=== PATIENT | female | born 1955 | race Caucasian/White ===

== ENCOUNTER 2016-09-05 16:25 | Emergency (ER) | payer MEDICARE, MEDICAID ==
--- NOTE | 2016-09-05 18:42 | EDDOCDS ---
Nurse's Notes [facility] Name: Cleo Celeste Age: 61 yrs Sex: Female : 1955 Arrival Date: 09/05/2016 Time: 16:25 Bed TR8 Private MD: Other - Complete Info On Cds Diagnosis: Cellulitis and abscess of mouth-TOOTH #28 Presentation: 09/05 16:41 Presenting complaint: Patient states: Was sent here by dentist office for consult with jo3 Dr Chan. States that paperwork should have been sent over. Has obvious swelling to right jaw. Seen at dentists office today and given Clindamycin prescription and then dentist called her back and advised her to come to ED. Adult Sepsis Screening: The patient does not have new or worsening altered mentation. Patient's respiratory rate is less than 22. Systolic blood pressure is greater than 100. Patient has a qSOFA score of 0- Negative Sepsis Screen. Suicide/Homicide risk assessment- the patient denies having any suicidal and/or homicidal ideations and does not present with any other emotional, behavioral or mental health complaints. 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 Transition of care: patient was not received from another setting of care. 16:41 Acuity: ELENITA Level 3 jo3 16:41 Method Of Arrival: Walkin/Carried/Asstd jo3 Triage Assessment: 16:48 General: Appears in no apparent distress, Behavior is appropriate for age, cooperative. jo3 Pain: Pain currently is 4 out of 10 on a pain scale. HIV screening NA for this visit Offered previously. Neurological: Level of Consciousness is awake, alert, Oriented to person, place, time. Respiratory: Airway is patent Respiratory effort is even, unlabored. Historical: - Allergies: PENICILLINS; Amoxicillin; Doxycycline; - Home Meds: 1. clindamycin HCl 300 mg Oral cap 1 cap TID 2. Klonopin 1 mg Oral tab 1 tab 3 times per day 3. trazodone 100 mg Oral tab HS 4. Seroquel 50mg in am and afternoon and 300mg at HS Oral tab 5. Effexor XR 75 mg Oral cp24 1 cap once daily 6. Fish Oil 1,000 mg Oral cap twice a day 7. Crestor 40 mg Oral tab 1 tab once daily 8. torsemide 20 mg oral tab 1 tab BID 9. metformin 1,000 mg Oral tab 1 tab 2 times per day 10. gabapentin 300 mg Oral cap 1 cap 3 times per day - PMHx: Diabetes - NIDDM: controlled; Hypercholesterolemia; Anxiety; Depression; Dysthymia; Hypertension; - PSHx: oral surgery; - Social history: Smoking status: Patient uses tobacco products, heavy tobacco smoker. No barriers to communication noted, The patient speaks fluent Mongolian, Speaks appropriately for age. - Family history: Not pertinent. - : The pt / caregiver states he / she is not on anticoagulants. Home medication list is obtained from the patient. - Exposure Risk Screening:: None identified. Screenin:40 Screening information is obtained from the patient. Fall risk: No risks identified. kcs Assistance ADL's: requires no assistance with activities of daily living. Abuse/DV Screen: The patient / caregiver reports he/she is: not in a situation that causes fear, pain or injury. Nutritional screening: No deficits noted. Advance Directives: Currently, there is no health care proxy. There is no living will. home support is adequate. Assessment: 18:15 General: Patient being examined by Dr. Chan.. Pain: Location: right side of face. kcs Neurological: Level of Consciousness is awake, alert. Respiratory: Airway is patent Respiratory effort is even, unlabored, Respiratory pattern is regular, symmetrical. Derm: Skin is intact, is healthy with good turgor, Skin is dry, Skin is normal, right side of face is swollen an slightly red. Talking easily. Smiling. 18:33 General: Appears comfortable, ill, well developed, well nourished, well groomed, kcs Behavior is cooperative, pleasant. Pain: Complains of pain in right side of face. Awake, alert, oriented. Skin warm and dry. Moves all extremities. Respirations unlabored. No apparent distress. The patient / caregiver is instructed regarding the plan of care and ED course. Physical assessment to be completed by PA/EDMD. Vital Signs: 16:29 BP 113 / 68 RA Sitting (auto/reg); Pulse 99; Resp 18; Temp 100.1; Pulse Ox 98% on R/A; jrd Weight 86.64 kg; Height 5 ft. 4 in. (162.56 cm); Pain 4/10; 18:31 BP 132 / 71; Pulse 98; Resp 20; Temp 98.3(O); Pulse Ox 99% on R/A; Pain 5/10; ct3 16:29 Body Mass Index 32.78 (86.64 kg, 162.56 cm) [facility] Vitals: 16:29 Log In Time: September 05, 2016 at 04:10. [facility] ED Course: 16:28 Patient visited by Jimbo Stockton PCA. jrd 16:28 Patient moved to Waiting jrd 16:29 Other - Complete Info On Cds is Private Physician. jrd 16:30 Patient visited by Jimbo Stockton PCA. jrd 16:30 Patient moved to Pre RCE jrd 16:44 Triage Initiated jo3 16:50 Patient visited by Liza Cardenas,MELANIE. jo3 17:33 Patient moved to Triage 2 ct3 17:34 Patient visited by Thu Brantley,MELANIE. ck1 17:58 Joselito Mendenhall PA is PHCP. mo1 17:58 Jacob Pemberton MD is Attending Physician. mo1 18:05 Patient visited by Joselito Mendenhall PA. mo1 18:10 Patient moved to PD2 / 27 mo1 18:15 No IV's were initiated during this patient's visit. No procedures done that require kcs assistance. 18:27 Gilbert Chan is Referral Physician. mo1 18:32 Patient visited by Roxy Rosado PCA. ct3 18:33 Accompanied by Friend. kcs 18:41 Patient moved to TR8 ct3 Order Results: There are currently no results for this order. Outcome: 18:15 Discharge Assessment: Patient awake, alert and oriented x 3. No cognitive and/or kcs functional deficits noted. Patient verbalized understanding of disposition instructions. Patient awake and alert. patient administered narcotics - no. Property sent home with patient. 18:27 Discharge ordered by Provider. mo1 18:33 The following High Risk Discharge criteria are identified: None. Discharged to home kcs ambulatory, with friend. Condition: stable. Discharge instructions given to patient, Instructed on discharge instructions, follow up and referral plans. Demonstrated understanding of instructions, Pt was receptive of discharge instructions/ teaching. No special radiology studies were completed. 18:41 Patient left the ED. kcs Signatures: Esther Avila RN RN kcs Kim-Ashcraft, Connie, RN RN ck1 Liza CardenasRN RN jo3 Alonzo, Roxy, SUPERVISING ARCHITECT SUPERVISING ARCHITECT ct3 Joselito Mendenhall PA PA mo1 Jimbo Stockton, SUPERVISING ARCHITECT SUPERVISING ARCHITECT jrd MTDD
--- NOTE | 2016-09-05 18:42 | EDDOCDS ---
Physician Documentation [facility] Name: Cleo Celeste Age: 61 yrs Sex: Female : 1955 Arrival Date: 09/05/2016 Time: 16:25 Bed TR8 Private MD: Other - Complete Info On Cds Disposition: 09/05/16 18:27 Discharged to Home/Self Care. Impression: Cellulitis and abscess of mouth - TOOTH #28. - Condition is Stable. - Discharge Instructions: Cellulitis, Dental Abscess. - Medication Reconciliation, Local Pharmacy Hours form. - Follow up: Gilbert Chan; When: Tomorrow; Reason: Recheck today's complaints, Continuance of care. - Problem is new. - Symptoms are unchanged. Historical: - Allergies: PENICILLINS; Amoxicillin; Doxycycline; - Home Meds: 1. clindamycin HCl 300 mg Oral cap 1 cap TID 2. Klonopin 1 mg Oral tab 1 tab 3 times per day 3. trazodone 100 mg Oral tab HS 4. Seroquel 50mg in am and afternoon and 300mg at HS Oral tab 5. Effexor XR 75 mg Oral cp24 1 cap once daily 6. Fish Oil 1,000 mg Oral cap twice a day 7. Crestor 40 mg Oral tab 1 tab once daily 8. torsemide 20 mg oral tab 1 tab BID 9. metformin 1,000 mg Oral tab 1 tab 2 times per day 10. gabapentin 300 mg Oral cap 1 cap 3 times per day - PMHx: Diabetes - NIDDM: controlled; Hypercholesterolemia; Anxiety; Depression; Dysthymia; Hypertension; - PSHx: oral surgery; - Social history: Smoking status: Patient uses tobacco products, heavy tobacco smoker. No barriers to communication noted, The patient speaks fluent Palestinian, Speaks appropriately for age. - Family history: Not pertinent. - : The pt / caregiver states he / she is not on anticoagulants. Home medication list is obtained from the patient. - Exposure Risk Screening:: None identified. Vital Signs: 09/05 16:29 BP 113 / 68 RA Sitting (auto/reg); Pulse 99; Resp 18; Temp 100.1; Pulse Ox 98% on R/A; jrd Weight 86.64 kg / 191.01 lbs; Height 5 ft. 4 in. (162.56 cm); Pain 4/10; 18:31 BP 132 / 71; Pulse 98; Resp 20; Temp 98.3(O); Pulse Ox 99% on R/A; Pain 5/10; ct3 16:29 Body Mass Index 32.78 (86.64 kg, 162.56 cm) jrd Signatures: Esther Avila RN RN kcs Helmerci, Jennifer, RN RN jo3 Joselito Mendenhall PA PA mo1 MTDD
--- NOTE | 2016-09-07 19:42 | EDDOCDS ---
Physician Documentation [facility] Name: Cleo Celeste Age: 61 yrs Sex: Female : 1955 Arrival Date: 09/05/2016 Time: 16:25 Bed TR8 Private MD: Other - Complete Info On Cds Disposition: 09/05/16 18:27 Discharged to Home/Self Care. Impression: Cellulitis and abscess of mouth - TOOTH #28. - Condition is Stable. - Discharge Instructions: Cellulitis, Dental Abscess. - Medication Reconciliation, Local Pharmacy Hours form. - Follow up: Gilbert Chan; When: Tomorrow; Reason: Recheck today's complaints, Continuance of care. - Problem is new. - Symptoms are unchanged. Historical: - Allergies: PENICILLINS; Amoxicillin; Doxycycline; - Home Meds: 1. clindamycin HCl 300 mg Oral cap 1 cap TID 2. Klonopin 1 mg Oral tab 1 tab 3 times per day 3. trazodone 100 mg Oral tab HS 4. Seroquel 50mg in am and afternoon and 300mg at HS Oral tab 5. Effexor XR 75 mg Oral cp24 1 cap once daily 6. Fish Oil 1,000 mg Oral cap twice a day 7. Crestor 40 mg Oral tab 1 tab once daily 8. torsemide 20 mg oral tab 1 tab BID 9. metformin 1,000 mg Oral tab 1 tab 2 times per day 10. gabapentin 300 mg Oral cap 1 cap 3 times per day - PMHx: Diabetes - NIDDM: controlled; Hypercholesterolemia; Anxiety; Depression; Dysthymia; Hypertension; - PSHx: oral surgery; - Social history: Smoking status: Patient uses tobacco products, heavy tobacco smoker. No barriers to communication noted, The patient speaks fluent Tajik, Speaks appropriately for age. - Family history: Not pertinent. - : The pt / caregiver states he / she is not on anticoagulants. Home medication list is obtained from the patient. - Exposure Risk Screening:: None identified. Vital Signs: 09/05 16:29 BP 113 / 68 RA Sitting (auto/reg); Pulse 99; Resp 18; Temp 100.1; Pulse Ox 98% on R/A; jrd Weight 86.64 kg / 191.01 lbs; Height 5 ft. 4 in. (162.56 cm); Pain 4/10; 18:31 BP 132 / 71; Pulse 98; Resp 20; Temp 98.3(O); Pulse Ox 99% on R/A; Pain 5/10; ct3 16:29 Body Mass Index 32.78 (86.64 kg, 162.56 cm) jrd MDM: 18:57 [facility] Payment Agreement was scanned into [employer] and attached to record. zo 18:57 Financial registration complete. zo 09/06 10:29 T-Sheet-- Draft Copy was scanned into [employer] and attached to record. gb Signatures: Esther Avila, RN RN kcs Jazmin Mcgill, Reg Reg gb Liza Cardenas RN RN jo3 Shawn Cooley Michael, PA PA mo1 The chart was reviewed and I authenticate all verbal orders and agree with the evaluation and treatment provided.Attachments: 09/05 18:57 [facility] Payment Agreement zo 09/06 10:29 T-Sheet-- Draft Copy gb Chart Complete MTDD
--- NOTE | 2016-09-07 19:42 | EDDOCDS ---
Nurse's Notes [facility] Name: Cleo Celeste Age: 61 yrs Sex: Female : 1955 Arrival Date: 09/05/2016 Time: 16:25 Bed TR8 Private MD: Other - Complete Info On Cds Diagnosis: Cellulitis and abscess of mouth-TOOTH #28 Presentation: 09/05 16:41 Presenting complaint: Patient states: Was sent here by dentist office for consult with jo3 Dr Chan. States that paperwork should have been sent over. Has obvious swelling to right jaw. Seen at dentists office today and given Clindamycin prescription and then dentist called her back and advised her to come to ED. Adult Sepsis Screening: The patient does not have new or worsening altered mentation. Patient's respiratory rate is less than 22. Systolic blood pressure is greater than 100. Patient has a qSOFA score of 0- Negative Sepsis Screen. Suicide/Homicide risk assessment- the patient denies having any suicidal and/or homicidal ideations and does not present with any other emotional, behavioral or mental health complaints. Status: Patient is not a family service caseworker or dependent. Transition of care: patient was not received from another setting of care. 16:41 Acuity: ELENITA Level 3 jo3 16:41 Method Of Arrival: Walkin/Carried/Asstd jo3 Triage Assessment: 16:48 General: Appears in no apparent distress, Behavior is appropriate for age, cooperative. jo3 Pain: Pain currently is 4 out of 10 on a pain scale. HIV screening NA for this visit Offered previously. Neurological: Level of Consciousness is awake, alert, Oriented to person, place, time. Respiratory: Airway is patent Respiratory effort is even, unlabored. Historical: - Allergies: PENICILLINS; Amoxicillin; Doxycycline; - Home Meds: 1. clindamycin HCl 300 mg Oral cap 1 cap TID 2. Klonopin 1 mg Oral tab 1 tab 3 times per day 3. trazodone 100 mg Oral tab HS 4. Seroquel 50mg in am and afternoon and 300mg at HS Oral tab 5. Effexor XR 75 mg Oral cp24 1 cap once daily 6. Fish Oil 1,000 mg Oral cap twice a day 7. Crestor 40 mg Oral tab 1 tab once daily 8. torsemide 20 mg oral tab 1 tab BID 9. metformin 1,000 mg Oral tab 1 tab 2 times per day 10. gabapentin 300 mg Oral cap 1 cap 3 times per day - PMHx: Diabetes - NIDDM: controlled; Hypercholesterolemia; Anxiety; Depression; Dysthymia; Hypertension; - PSHx: oral surgery; - Social history: Smoking status: Patient uses tobacco products, heavy tobacco smoker. No barriers to communication noted, The patient speaks fluent Lithuanian, Speaks appropriately for age. - Family history: Not pertinent. - : The pt / caregiver states he / she is not on anticoagulants. Home medication list is obtained from the patient. - Exposure Risk Screening:: None identified. Screenin:40 Screening information is obtained from the patient. Fall risk: No risks identified. kcs Assistance ADL's: requires no assistance with activities of daily living. Abuse/DV Screen: The patient / caregiver reports he/she is: not in a situation that causes fear, pain or injury. Nutritional screening: No deficits noted. Advance Directives: Currently, there is no health care proxy. There is no living will. home support is adequate. Assessment: 18:15 General: Patient being examined by Dr. Chan.. Pain: Location: right side of face. kcs Neurological: Level of Consciousness is awake, alert. Respiratory: Airway is patent Respiratory effort is even, unlabored, Respiratory pattern is regular, symmetrical. Derm: Skin is intact, is healthy with good turgor, Skin is dry, Skin is normal, right side of face is swollen an slightly red. Talking easily. Smiling. 18:33 General: Appears comfortable, ill, well developed, well nourished, well groomed, kcs Behavior is cooperative, pleasant. Pain: Complains of pain in right side of face. Awake, alert, oriented. Skin warm and dry. Moves all extremities. Respirations unlabored. No apparent distress. The patient / caregiver is instructed regarding the plan of care and ED course. Physical assessment to be completed by PA/EDMD. Vital Signs: 16:29 BP 113 / 68 RA Sitting (auto/reg); Pulse 99; Resp 18; Temp 100.1; Pulse Ox 98% on R/A; jrd Weight 86.64 kg; Height 5 ft. 4 in. (162.56 cm); Pain 4/10; 18:31 BP 132 / 71; Pulse 98; Resp 20; Temp 98.3(O); Pulse Ox 99% on R/A; Pain 5/10; ct3 16:29 Body Mass Index 32.78 (86.64 kg, 162.56 cm) [facility] Vitals: 16:29 Log In Time: September 05, 2016 at 04:[address] [facility] ED Course: 16:28 Patient visited by Jimbo Stockton PCA. jrd 16:28 Patient moved to Waiting jrd 16:29 Other - Complete Info On Cds is Private Physician. jrd 16:30 Patient visited by Jimbo Stockton PCA. jrd 16:30 Patient moved to Pre RCE jrd 16:44 Triage Initiated jo3 16:50 Patient visited by Liza Cardenas,MELANIE. jo3 17:33 Patient moved to Triage 2 ct3 17:34 Patient visited by Thu Brantley,MELANIE. ck1 17:58 Joselito Mendenhall PA is PHCP. mo1 17:58 Jacob Pemberton MD is Attending Physician. mo1 18:05 Patient visited by Joselito Mendenhall PA. mo1 18:10 Patient moved to PD2 / 27 mo1 18:15 No IV's were initiated during this patient's visit. No procedures done that require kcs assistance. 18:27 Gilbert Chan is Referral Physician. mo1 18:32 Patient visited by Roxy Rosado PCA. ct3 18:33 Accompanied by Friend. kcs 18:41 Patient moved to TR8 ct3 18:56 Patient name changed from Cleo\S\A\S\Celeste\S\ to Cleo\S\ \S\Celeste. EDMS 18:57 [facility] [place] Agreement was scanned into [employer] and attached to record. zo 09/06 10:29 T-Sheet-- Draft Copy was scanned into [employer] and attached to record. gb Order Results: There are currently no results for this order. Outcome: 09/05 18:15 Discharge Assessment: Patient awake, alert and oriented x 3. No cognitive and/or kcs functional deficits noted. Patient verbalized understanding of disposition instructions. Patient awake and alert. patient administered narcotics - no. Property sent home with patient. 18:27 Discharge ordered by Provider. mo1 18:33 The following High Risk Discharge criteria are identified: None. Discharged to home kcs ambulatory, with friend. Condition: stable. Discharge instructions given to patient, Instructed on discharge instructions, follow up and referral plans. Demonstrated understanding of instructions, Pt was receptive of discharge instructions/ teaching. No special radiology studies were completed. 18:41 Patient left the ED. kcs Signatures: Dispatcher [employer] EDMS Esther Avila RN RN kcs Jazmin Mcgill, Reg Reg gb Thu BrantleyRN RN ck1 Liza Cardenas RN RN jo3 Shawn Cooley Consuelo, ADVERTISING ANALYST ADVERTISING ANALYST ct3 Joselito Mendenhall PA PA mo1 Jimbo Stockton, ADVERTISING ANALYST ADVERTISING ANALYST jrd Chart Complete MTDD
--- NOTE | 2016-09-07 19:42 | EDDOCDS ---
Physician Documentation [facility] Name: Cleo Celeste Age: 61 yrs Sex: Female : 1955 Arrival Date: 09/05/2016 Time: 16:25 Bed TR8 Private MD: Other - Complete Info On Cds Disposition: 09/05/16 18:27 Discharged to Home/Self Care. Impression: Cellulitis and abscess of mouth - TOOTH #28. - Condition is Stable. - Discharge Instructions: Cellulitis, Dental Abscess. - Medication Reconciliation, Local Pharmacy Hours form. - Follow up: Gilbert Chan; When: Tomorrow; Reason: Recheck today's complaints, Continuance of care. - Problem is new. - Symptoms are unchanged. Historical: - Allergies: PENICILLINS; Amoxicillin; Doxycycline; - Home Meds: 1. clindamycin HCl 300 mg Oral cap 1 cap TID 2. Klonopin 1 mg Oral tab 1 tab 3 times per day 3. trazodone 100 mg Oral tab HS 4. Seroquel 50mg in am and afternoon and 300mg at HS Oral tab 5. Effexor XR 75 mg Oral cp24 1 cap once daily 6. Fish Oil 1,000 mg Oral cap twice a day 7. Crestor 40 mg Oral tab 1 tab once daily 8. torsemide 20 mg oral tab 1 tab BID 9. metformin 1,000 mg Oral tab 1 tab 2 times per day 10. gabapentin 300 mg Oral cap 1 cap 3 times per day - PMHx: Diabetes - NIDDM: controlled; Hypercholesterolemia; Anxiety; Depression; Dysthymia; Hypertension; - PSHx: oral surgery; - Social history: Smoking status: Patient uses tobacco products, heavy tobacco smoker. No barriers to communication noted, The patient speaks fluent Icelandic, Speaks appropriately for age. - Family history: Not pertinent. - : The pt / caregiver states he / she is not on anticoagulants. Home medication list is obtained from the patient. - Exposure Risk Screening:: None identified. Vital Signs: 09/05 16:29 BP 113 / 68 RA Sitting (auto/reg); Pulse 99; Resp 18; Temp 100.1; Pulse Ox 98% on R/A; jrd Weight 86.64 kg / 191.01 lbs; Height 5 ft. 4 in. (162.56 cm); Pain 4/10; 18:31 BP 132 / 71; Pulse 98; Resp 20; Temp 98.3(O); Pulse Ox 99% on R/A; Pain 5/10; ct3 16:29 Body Mass Index 32.78 (86.64 kg, 162.56 cm) jrd MDM: 18:57 [facility] Payment Agreement was scanned into [employer] and attached to record. zo 18:57 Financial registration complete. zo 09/06 10:29 T-Sheet-- Draft Copy was scanned into [employer] and attached to record. gb Signatures: Esther Avila, RN RN kcs Jazmin Mcgill, Reg Reg gb Liza Cardenas RN RN jo3 Shawn Cooley Michael, PA PA mo1 The chart was reviewed and I authenticate all verbal orders and agree with the evaluation and treatment provided.Attachments: 09/05 18:57 [facility] Payment Agreement zo 09/06 10:29 T-Sheet-- Draft Copy gb Chart Complete MTDD
== END 2016-09-05 18:41 | disposition home or self-care (01) ==
LOC: M ED 16:25
DX: K05.219 Aggressive periodontitis, localized, unspecified severity (principal); K02.9 Dental caries, unspecified; R68.84 Jaw pain; E11.9 Type 2 diabetes mellitus without complications; E78.00 Pure hypercholesterolemia, unspecified; F41.9 Anxiety disorder, unspecified; F32.9 Major depressive disorder, single episode, unspecified; I10 Essential (primary) hypertension; F34.1 Dysthymic disorder; Z72.0 Tobacco use; Z79.899 Other long term (current) drug therapy; Z88.0 Allergy status to penicillin; Z88.1 Allergy status to other antibiotic agents

== ENCOUNTER → 2019-03-01 | Outpatient (REF) | payer MEDICARE, MEDICAID ==
[~2019-03-01] MED LIST: CLON1TAB8 PO; DEXI60CA2 PO; GABA-843 PO; METF10004 PO; POTA10PO PO; QUET1TAB10 PO; QUET5TAB PO; RAMI1CAP21 PO; ROSU20TA5 PO; TORS20TA2 PO; TRAZ-163 PO; VENL75CA47 PO; VENTAER INH; VITA200015 PO
[2019-03-03 12:00] LABS: HEPATITIS B SURFACE ANTIBODY NEGATIVE (POSITIVE); HEPATITIS B SURFACE ANTIGEN NEGATIVE (NEGATIVE); HIV 1&2 SCREEN CENTAUR NEGATIVE (NEGATIVE)
[2019-03-05 00:06] LABS: HEPATITIS B CORE ANTIBODY IGG Negative (Negative)
== END ==
LOC: M SFHCPLAZ 15:42
PROVIDERS: ATTEND Dermatology
DX: Z79.899 Other long term (current) drug therapy (principal)

== ENCOUNTER → 2020-06-28 | Outpatient (REF) | payer MEDICARE, MEDICAID ==
[~2020-06-28] MED LIST changes: -TRAZ-163 PO; +TRAZ-257 PO
== END ==
LOC: M LAB REF 17:40
PROVIDERS: ATTEND Dermatology
DX: L81.4 Other melanin hyperpigmentation (principal)
CPT/HCPCS: 11102; 88305; G0463

== ENCOUNTER → 2020-07-05 | Outpatient (CLI) | payer MEDICARE, MEDICAID | LOC: M LAB 15:03 | PROVIDERS: ATTEND Dermatology | DX: Z79.899 Other long term (current) drug therapy (principal) ==

== ENCOUNTER → 2020-07-05 | Outpatient (CLI) | payer MEDICARE, MEDICAID ==
[2020-07-05 16:49] LABS: FREE T4 0.78 NG/DL (0.76-1.46); THYROID STIMULATING HORMONE 1.55 uIU/ML (0.358-3.740)
== END ==
LOC: M LAB 14:57
PROVIDERS: ATTEND Internal Medicine Gastroenterology
DX: R19.4 Change in bowel habit (principal); Z79.899 Other long term (current) drug therapy

== ENCOUNTER → 2020-10-10 | Outpatient (CLI) | payer MEDICARE, MEDICAID ==
[~2020-10-10] MED LIST changes: +GABA-282 PO; -GABA-843 PO; -QUET1TAB10 PO; +QUET300T2 PO; +QUET50TA3 PO; -QUET5TAB PO
--- NOTE | 2020-10-10 15:04 | REP ---
INDICATION: DECREASED GFR. COMPARISON: None. TECHNIQUE: Real-time sonographic evaluation of the kidneys is performed. FINDINGS: Renal cortical echogenicity pattern is normal bilaterally and contours are smooth. There is no evidence of hydronephrosis, cyst, mass, or calculus in either kidney. The right kidney measures 9.7 x 4.7 x 4.7 cm. Left renal dimensions are 9.6 x 4.5 x 4.8 cm. The urinary bladder is unremarkable. Ureteral jets could not be seen in the urinary bladder with Doppler color evaluation. IMPRESSION: Negative renal ultrasound. <Electronically signed by Raj Machado > 10/10/20 1500
== END ==
LOC: M RAD 14:27
PROVIDERS: ATTEND Physician Assistant
DX: R94.4 Abnormal results of kidney function studies (principal)

== ENCOUNTER → 2020-10-19 | Outpatient (CLI) | payer MEDICARE, MEDICAID ==
[~2020-10-19] MED LIST changes: +PROP10TA56 PO; +VENL150C43 PO
== END ==
LOC: M LABSMTC 09:40
PROVIDERS: ATTEND Anesthesiology
DX: Z11.52 Encounter for screening for COVID-19 (principal)

== ENCOUNTER 2020-10-24 06:58 | Day surgery (SDC) | payer MEDICARE, MEDICAID ==
[~2020-10-24] VITALS: Ht 157.5 cm; Wt 86.2 kg
[~2020-10-24 06:58] MED LIST changes: +NS 1,000 ML IV ONE
[2020-10-24] MEDS ORDERED: propofoL 200 MG/20 ML VIAL As Ordered ONE (07:18)
[2020-10-24] MEDS ORDERED: LIDOCAINE 2% 100MG/5ML SDV (FOR ANES.) As Ordered ONE (07:18)
--- NOTE | 2020-10-24 08:29 | ROOR ---
Patient Name: Cleo Celeste Procedure Date: 10/24/2020 7:53 AM Date of : 1955 Age: 65 Room: [facility] Gender: Female Note Status: Finalized Procedure: Colonoscopy Indications: Chronic diarrhea Providers: Duy DINERO MD Referring MD: Hanna Hickman NP Requesting Provider: Medicines: Monitored Anesthesia Care Complications: No immediate complications. Procedure: Pre-Anesthesia Assessment: - The heart rate, respiratory rate, oxygen saturations, blood pressure, adequacy of pulmonary ventilation, and response to care were monitored throughout the procedure. The Colonoscope was introduced through the anus and advanced to the terminal ileum, with identification of the appendiceal orifice and IC valve. The colonoscopy was performed without difficulty. The patient tolerated the procedure well. The quality of the bowel preparation was good. Findings: The perianal and digital rectal examinations were normal. Two sessile polyps were found in the sigmoid colon. The polyps were 4 to 5 mm in size. These polyps were removed with a cold snare. Resection and retrieval were complete. Small Internal Hemorrhoids. The colon exam was otherwise without abnormality. The terminal ileum appeared normal. Biopsies for histology were taken with a cold forceps from the entire colon for evaluation of microscopic colitis. Impression: - Two 4 to 5 mm polyps in the sigmoid colon, removed with a cold snare. Resected and retrieved. - Small Internal Hemorrhoids. - The examination was otherwise normal. - The examined portion of the ileum was normal. - Biopsies were taken with a cold forceps from the entire colon for evaluation of microscopic colitis. Recommendation: - Lactose free diet. - Await pathology results. - Telephone endoscopist for pathology results in 2 weeks. - I am awaiting the results of your stool testing. My office will mail you the necessary stool testing lab slips again. Please do these tests as soon as convenient and submit to the [facility] lab. I will give you the results when you call for your pathology report in 2 weeks. - Return to referring physician as previously scheduled. Procedure Code(s): --- Professional --- 68672, Colonoscopy, flexible; with removal of tumor(s), polyp(s), or other lesion(s) by snare technique 39978, 59, Colonoscopy, flexible; with biopsy, single or multiple Diagnosis Code(s): --- Professional --- K52.9, Noninfective gastroenteritis and colitis, unspecified K63.5, Polyp of colon CPT copyright 2019 [employer]. All rights reserved. The codes documented in this report are preliminary and upon cardiology teacher review may be revised to meet current compliance requirements. Duy Dinero MD Duy DINERO MD 10/24/2020 8:29:32 AM Electronically signed by Duy DINERO MD Number of Addenda: 0 Note Initiated On: 10/24/2020 7:53 AM Estimated Blood Loss: Estimated blood loss: none.
[2020-10-24 08:45] VITALS: BP 122/62
== END 2020-10-24 08:53 | disposition home or self-care (01) ==
LOC: M OPP 06:58
PROVIDERS: ATTEND Internal Medicine Gastroenterology
DX: K63.5 Polyp of colon (principal); K52.9 Noninfective gastroenteritis and colitis, unspecified; K64.8 Other hemorrhoids; E11.9 Type 2 diabetes mellitus without complications; F17.210 Nicotine dependence, cigarettes, uncomplicated; M79.7 Fibromyalgia; Z79.84 Long term (current) use of oral hypoglycemic drugs; Z79.899 Other long term (current) drug therapy; Z88.0 Allergy status to penicillin; Z88.1 Allergy status to other antibiotic agents

== ENCOUNTER → 2021-01-11 | Outpatient (REF) | payer MEDICARE, MEDICAID ==
[~2021-01-11] MED LIST changes: -NS 1,000 ML IV ONE
== END ==
LOC: M LAB REF 16:01
PROVIDERS: ATTEND Internal Medicine Gastroenterology
DX: R19.4 Change in bowel habit (principal)

== ENCOUNTER → 2021-06-13 | Outpatient (CLI) | payer MEDICARE, MEDICAID ==
[~2021-06-13] MED LIST changes: -QUET50TA3 PO; +QUET50TA4 PO
[2021-06-13 13:34] LABS: HEMOGLOBIN A1c 6.6 %
[2021-06-13 13:38] LABS: FOLATE 6.1 NG/ML
== END ==
LOC: M LAB 12:45
PROVIDERS: ATTEND Physician Assistant
DX: E53.8 Deficiency of other specified B group vitamins (principal); E11.9 Type 2 diabetes mellitus without complications

== ENCOUNTER → 2021-07-09 | Outpatient (CLI) | payer MEDICARE, MEDICAID | LOC: M LAB 15:56 | PROVIDERS: ATTEND Physician Assistant | DX: L40.0 Psoriasis vulgaris (principal) ==

== ENCOUNTER 2022-03-18 21:15 | Emergency (ER) | payer MEDICARE, MEDICAID ==
[~2022-03-18] VITALS: Ht 157.5 cm; Wt 84.8 kg
[2022-03-19] MEDS ORDERED: FLUORESCEIN OPHTH 1 MG STRIP OS ONE (00:35)
[2022-03-19] MEDS ORDERED: TETRACAINE 0.5% OPHTH SOLN 4ML OS ONE (00:35)
[2022-03-19 01:46] VITALS: BP 182/80
== END 2022-03-19 01:48 | disposition home or self-care (01) ==
LOC: M ED 21:15
DX: Z53.29 Procedure and treatment not carried out because of patient's decision for other reasons (principal)

== ENCOUNTER 2022-04-16 17:51 | Emergency (ER) | payer MEDICAID, MEDICARE ==
[~2022-04-16] VITALS: Ht 157.5 cm; Wt 84.5 kg
[2022-04-16 17:52] VITALS: BP 180/84
[2022-04-16] MEDS ORDERED: CIPROFLOXACIN 0.3% OPHTH SOLN 2.5ML OD ONE (19:45)
[2022-04-16] MEDS ORDERED: CIPR0.3S6 OD (19:47)
== END 2022-04-16 20:10 | disposition home or self-care (01) ==
LOC: M ED 17:51
DX: B30.9 Viral conjunctivitis, unspecified (principal); E11.9 Type 2 diabetes mellitus without complications; I10 Essential (primary) hypertension; J44.9 Chronic obstructive pulmonary disease, unspecified; E78.5 Hyperlipidemia, unspecified; F32.A Depression, unspecified; F41.9 Anxiety disorder, unspecified; Z79.899 Other long term (current) drug therapy; Z79.84 Long term (current) use of oral hypoglycemic drugs; Z88.0 Allergy status to penicillin; Z88.1 Allergy status to other antibiotic agents; F17.200 Nicotine dependence, unspecified, uncomplicated

== ENCOUNTER 2022-05-02 16:51 | Emergency (ER) | payer MEDICARE ==
[~2022-05-02] VITALS: Ht 157.5 cm; Wt 82.7 kg
[~2022-05-02 16:51] MED LIST changes: +CIPR0.3S6 OD
[2022-05-02 18:29] LABS: VENOUS BASE EXCESS 6.1 (-2.0-2.0); VENOUS HCO3 32.6 MEQ/L (23.0-27.0); VENOUS PARTIAL PRESSURE CO2 55.4 mmHg (38.0-50.0); VENOUS PARTIAL PRESSURE O2 45.1 mmHg (30.0-50.0); VENOUS PH 7.387 UNITS (7.330-7.430); VENOUS STANDARD HCO3 29.6 MEQ/L; VENOUS TOTAL CO2 34.3 MEQ/L (24.0-28.0)
[2022-05-02] MEDS ORDERED: methylPREDNISolone 125MG 2ML VIAL IV ONE (19:05)
[2022-05-02] MEDS ORDERED: LIDOCAINE VISCOUS 2% SOLN 15ML UDC SS ONE (19:05)
[2022-05-02] MEDS ORDERED: BENZONATATE 100MG CAPSULE PO ONE (19:05)
[2022-05-02 19:16] LABS: CK-MB VALUE MASS 1.1 NG/ML (<3.6); MB/CK RELATIVE INDEX 2.2 (< OR =4)
[2022-05-02 19:21] LABS: ALBUMIN 3.3 GM/DL (3.2-5.2); BILIRUBIN,DIRECT 0.1 MG/DL (0.0-0.2); BILIRUBIN,TOTAL 0.4 MG/DL (0.2-1.0); CALCIUM LEVEL 9.2 MG/DL (8.8-10.2); CREATININE FOR GFR 1.75 MG/DL (0.55-1.30); GLOMERULAR FILTRATION RATE 31.2 (>45); POTASSIUM SERUM 3.4 MEQ/L (3.5-5.1); THYROID STIMULATING HORMONE 0.92 uIU/ML (0.358-3.740); THYROXINE (T4) 5.1 UG/DL (4.5-12.0)
[2022-05-02 19:38] LABS: BASO % 0.6 % (0.0-1.0); EOS # 0.3 10^3/uL (0.0-0.5); EOS % 3.8 % (0.0-3.0); HEMATOCRIT 35.7 % (36.0-47.0); HEMOGLOBIN 11.9 g/dl (12.0-15.5); LYMPH # 2.6 10^3/uL (1.5-5.0); LYMPH % 36.2 % (24.0-44.0); MEAN CORPUSCULAR HEMOGLOBIN 31.4 pg (27.0-33.0); MEAN CORPUSCULAR HGB CONC 33.3 g/dl (32.0-36.5); MEAN CORPUSCULAR VOLUME 94.2 fl (80.0-96.0); MONO # 0.5 10^3/uL (0.0-0.8); MONO % 6.7 % (2.0-8.0); NEUTROPHILS # 3.7 10^3/uL (1.5-8.5); NEUTROPHILS % 51.9 % (36.0-66.0); PLATELET COUNT, AUTOMATED 352 10^3/uL (150-450); RED BLOOD COUNT 3.79 10^6/uL (4.00-5.40); WHITE BLOOD COUNT 7.2 10^3/uL (4.0-10.0)
[2022-05-02] MEDS ORDERED: NS 1,000 ML IV ONE (19:50)
[2022-05-02] MEDS ORDERED: guaiFENesin ER 600 MG TAB PO SCH (21:00)
[2022-05-02] MEDS ORDERED: BENZ150C2 PO (21:03)
[2022-05-02] MEDS ORDERED: EQ S0.65 NARES (21:03)
[2022-05-02] MEDS ORDERED: MUCI1TAB16 PO (21:03)
[2022-05-02] MEDS ORDERED: PRED20TA PO (21:04)
[2022-05-02 21:23] VITALS: BP 141/76
== END 2022-05-02 21:26 | disposition home or self-care (01) ==
LOC: M ED 16:51
DX: U07.1 COVID-19 (principal); F17.200 Nicotine dependence, unspecified, uncomplicated; I11.0 Hypertensive heart disease with heart failure; J44.9 Chronic obstructive pulmonary disease, unspecified; Z88.0 Allergy status to penicillin; Z88.1 Allergy status to other antibiotic agents
CPT/HCPCS: 71045; 80047; 80048; 80076; 82550; 82553; 82803; 83605; 83880; 84436; 84443; 84484; 85025; 87040; 93005; 96361; 96374; 99284; J2930

== ENCOUNTER → 2022-06-03 | Outpatient (CLI) | payer MEDICARE, MEDICAID ==
[~2022-06-03] MED LIST changes: +BENZ150C2 PO; +EQ S0.65 NARES; +MUCI1TAB16 PO; +PRED20TA PO
== END ==
LOC: M RAD 15:01
PROVIDERS: ATTEND Physician Assistant
DX: Z12.2 Encounter for screening for malignant neoplasm of respiratory organs (principal); F17.210 Nicotine dependence, cigarettes, uncomplicated; R91.8 Other nonspecific abnormal finding of lung field

== ENCOUNTER → 2022-06-04 | Outpatient (CLI) | payer MEDICARE, MEDICAID ==
[2022-06-04 13:04] LABS: HEMATOCRIT 35.3 % (36.0-47.0); HEMOGLOBIN 11.8 g/dl (12.0-15.5); MEAN CORPUSCULAR HEMOGLOBIN 32.2 pg (27.0-33.0); MEAN CORPUSCULAR HGB CONC 33.4 g/dl (32.0-36.5); MEAN CORPUSCULAR VOLUME 96.2 fl (80.0-96.0); PLATELET COUNT, AUTOMATED 322 10^3/uL (150-450); RED BLOOD COUNT 3.67 10^6/uL (4.00-5.40); WHITE BLOOD COUNT 6.4 10^3/uL (4.0-10.0)
[2022-06-04 14:07] LABS: ALBUMIN 3.4 GM/DL (3.2-5.2); BILIRUBIN,TOTAL 0.2 MG/DL (0.2-1.0); CALCIUM LEVEL 8.9 MG/DL (8.8-10.2); CREATININE FOR GFR 1.58 MG/DL (0.55-1.30); GLOMERULAR FILTRATION RATE 35.1 (>45); POTASSIUM SERUM 5.1 MEQ/L (3.5-5.1); THYROID STIMULATING HORMONE 2.66 uIU/ML (0.358-3.740); TOTAL PROTEIN 6.6 GM/DL (6.4-8.2)
== END ==
LOC: M LAB 11:54
PROVIDERS: ATTEND Physician Assistant
DX: N18.9 Chronic kidney disease, unspecified (principal); R60.0 Localized edema

== ENCOUNTER 2022-07-14 16:24 | Emergency (ER) | payer MEDICARE, MEDICAID ==
[~2022-07-14] VITALS: Ht 157.5 cm; Wt 84.9 kg
[2022-07-14 16:24] VITALS: BP 195/83
[2022-07-14 17:39] LABS: RSV AMPLIFICATION NEGATIVE (NEGATIVE)
== END 2022-07-14 20:42 | disposition left against medical advice (07) ==
LOC: M ED 16:24
DX: Z53.21 Procedure and treatment not carried out due to patient leaving prior to being seen by health care provider (principal)

== ENCOUNTER → 2022-07-15 | Outpatient (CLI) | payer MEDICARE, MEDICAID | LOC: M PLARAD 14:20 | PROVIDERS: ATTEND Physician Assistant | DX: J44.9 Chronic obstructive pulmonary disease, unspecified (principal); R91.8 Other nonspecific abnormal finding of lung field; F17.210 Nicotine dependence, cigarettes, uncomplicated ==

== ENCOUNTER → 2022-10-02 | Outpatient (CLI) | payer MEDICARE, MEDICAID | LOC: M LAB 16:42 | PROVIDERS: ATTEND Physician Assistant | DX: L40.9 Psoriasis, unspecified (principal) ==

== ENCOUNTER → 2022-10-18 | Outpatient (REF) | payer MEDICARE, MEDICAID ==
[2022-10-18 17:48] LABS: CREATININE, URINE 21.1 MG/DL
[2022-10-18 17:51] LABS: MALB URINE SIEMENS < 3.0 MG/L; MAU/CREAT RATIO 14.2 MCG/MG (0.0-30.0)
== END ==
LOC: M LAB REF 16:15
PROVIDERS: ATTEND Physician Assistant
DX: E11.9 Type 2 diabetes mellitus without complications (principal)

== ENCOUNTER → 2022-10-29 | Outpatient (CLI) | payer MEDICARE, MEDICAID ==
[2022-10-29 14:46] LABS: HEMATOCRIT 38.4 % (36.0-47.0); HEMOGLOBIN 12.8 g/dl (12.0-15.5); MEAN CORPUSCULAR HEMOGLOBIN 31.9 pg (27.0-33.0); MEAN CORPUSCULAR HGB CONC 33.3 g/dl (32.0-36.5); MEAN CORPUSCULAR VOLUME 95.8 fl (80.0-96.0); PLATELET COUNT, AUTOMATED 268 10^3/uL (150-450); RED BLOOD COUNT 4.01 10^6/uL (4.00-5.40); WHITE BLOOD COUNT 6.1 10^3/uL (4.0-10.0)
[2022-10-29 15:16] LABS: ALBUMIN 3.3 G/DL (3.2-5.2); BILIRUBIN,TOTAL 0.3 MG/DL (0.3-1.2); CALCIUM LEVEL 8.6 MG/DL (8.3-10.6); CHOLESTEROL RISK RATIO 8.65 (<5); CREATININE FOR GFR 1.48 MG/DL (0.55-1.30); GLOMERULAR FILTRATION RATE 37.7 (>45); HDL CHOLESTEROL 33.4 MG/DL (>40); LDL CHOLESTEROL 191.4 MG/DL (<100); NON-HDL-C 255.6 MG/DL; TOTAL PROTEIN 6.3 G/DL (5.7-8.2)
== END ==
LOC: M LAB 14:17
PROVIDERS: ATTEND Physician Assistant
DX: N18.9 Chronic kidney disease, unspecified (principal); E11.9 Type 2 diabetes mellitus without complications

== ENCOUNTER → 2023-01-08 | Outpatient (CLI) | payer MEDICARE, MEDICAID ==
[~2023-01-08] MED LIST changes: +CIPR0.3S37 OD; -CIPR0.3S6 OD
== END ==
LOC: M LAB 12:06
PROVIDERS: ATTEND Physician Assistant
DX: Z79.899 Other long term (current) drug therapy (principal)

== ENCOUNTER → 2023-01-08 | Outpatient (CLI) | payer MEDICARE, MEDICAID ==
[2023-01-08 12:47] LABS: HEMATOCRIT 37.3 % (36.0-47.0); HEMOGLOBIN 12.3 g/dl (12.0-15.5); MEAN CORPUSCULAR HEMOGLOBIN 32.5 pg (27.0-33.0); MEAN CORPUSCULAR VOLUME 98.7 fl (80.0-96.0); PLATELET COUNT, AUTOMATED 307 10^3/uL (150-450); RED BLOOD COUNT 3.78 10^6/uL (4.00-5.40); WHITE BLOOD COUNT 8.5 10^3/uL (4.0-10.0)
[2023-01-08 13:34] LABS: ALBUMIN 3.3 G/DL (3.2-5.2); ALKALINE PHOSPHATASE 109 U/L (46-116); ALT/SGPT 19 U/L (7.0-40); AST/SGOT < 8 U/L (<34); BILIRUBIN,TOTAL 0.3 MG/DL (0.3-1.2); BLOOD UREA NITROGEN 15 MG/DL (9-23); CALCIUM LEVEL 8.7 MG/DL (8.3-10.6); CARBON DIOXIDE LEVEL 29 MMOL/L (20-31); CHLORIDE LEVEL 103 MMOL/L (98-107); CHOLESTEROL LEVEL 218 MG/DL (<200); CHOLESTEROL RISK RATIO 6.94 (<5); CREATININE FOR GFR 1.47 MG/DL (0.55-1.30); GLUCOSE, FASTING 154 MG/DL (74-106); HDL CHOLESTEROL 31.4 MG/DL (>40); LDL CHOLESTEROL 135.8 MG/DL (<100); NON-HDL-C 186.6 MG/DL; POTASSIUM SERUM 4.1 MMOL/L (3.5-5.1); SODIUM LEVEL 135 MMOL/L (136-145); TOTAL PROTEIN 6.1 G/DL (5.7-8.2); TRIGLYCERIDES LEVEL 254 MG/DL (<150)
== END ==
LOC: M LAB 12:10
PROVIDERS: ATTEND Physician Assistant
DX: N18.9 Chronic kidney disease, unspecified (principal); E11.9 Type 2 diabetes mellitus without complications; Z79.899 Other long term (current) drug therapy

== ENCOUNTER → 2023-01-27 | Outpatient (CLI) | payer MEDICARE, MEDICAID ==
[~2023-01-27] MED LIST changes: -ROSU20TA5 PO; +ROSU20TA61 PO
== END ==
LOC: M RAD 14:40
PROVIDERS: ATTEND Physician Assistant
DX: J44.1 Chronic obstructive pulmonary disease with (acute) exacerbation (principal)

== ENCOUNTER 2023-02-12 18:21 | Emergency (ER) | payer MEDICARE, MEDICAID ==
[~2023-02-12] VITALS: Ht 157.5 cm; Wt 87.2 kg
[2023-02-12 19:13] LABS: HEMATOCRIT 35.5 % (36.0-47.0); HEMOGLOBIN 12.7 g/dl (12.0-15.5); MEAN CORPUSCULAR HEMOGLOBIN 33.3 pg (27.0-33.0); MEAN CORPUSCULAR HGB CONC 35.8 g/dl (32.0-36.5); MEAN CORPUSCULAR VOLUME 93.2 fl (80.0-96.0); PLATELET COUNT, AUTOMATED 271 10^3/uL (150-450); RED BLOOD COUNT 3.81 10^6/uL (4.00-5.40); WHITE BLOOD COUNT 7.2 10^3/uL (4.0-10.0)
[2023-02-12 19:25] LABS: INR 0.85; PROTHROMBIN TIME 11.8 SECONDS (12.5-14.5)
[2023-02-12 19:39] LABS: CK-MB VALUE MASS 3.5 NG/ML (<3.6)
[2023-02-12 19:40] LABS: ALBUMIN 3.5 G/DL (3.2-5.2); ALKALINE PHOSPHATASE 134 U/L (46-116); ALT/SGPT 25 U/L (7.0-40); AST/SGOT < 8 U/L (<34); BILIRUBIN,DIRECT < 0.1 MG/DL (<0.4); BILIRUBIN,TOTAL 0.3 MG/DL (0.3-1.2); BLOOD UREA NITROGEN 12 MG/DL (9-23); CALCIUM LEVEL 8.2 MG/DL (8.3-10.6); CARBON DIOXIDE LEVEL 30 MMOL/L (20-31); CHLORIDE LEVEL 97 MMOL/L (98-107); CREATININE FOR GFR 1.49 MG/DL (0.55-1.30); GLOMERULAR FILTRATION RATE 37.4 (>45); GLUCOSE, FASTING 290 MG/DL (74-106); POTASSIUM SERUM 3.7 MMOL/L (3.5-5.1); SODIUM LEVEL 131 MMOL/L (136-145); TOTAL PROTEIN 6.5 G/DL (5.7-8.2)
[2023-02-12 19:43] LABS: CPK CREATINE PHOSPHOKINASE 201 U/L (34-145); MB/CK RELATIVE INDEX 1.74 (< OR =4)
[2023-02-12 20:00] LABS: BASOPHILS 1 % (0-1); EOSINOPHILS 2 % (0-3); LYMPHOCYTES 33 % (16-44); MONOCYTES 4 % (0-5); NEUTROPHILS 60 % (28-66); PLATELET ESTIMATE NORMAL (NORMAL)
[2023-02-12] MEDS ORDERED: methylPREDNISolone 125MG 2ML VIAL IV ONE (20:10)
[2023-02-12] MEDS: IPRATROPIUM 0.5MG/ALBUTEROL 2.5MG INH SOL UD 3ML (DUONEB) NEB PRN ×2 (20:54→21:22)
[2023-02-12 21:11] LABS: ABG BASE EXCESS 4.7 (-2.0-2.0); ABG HCO3 30.3 MMOL/L (22.0-26.0); ABG O2 SATURATION 95.6 % (95.0-99.0); ABG PARTIAL PRESSURE CO2 48.8 mmHg (35.0-45.0); ABG STANDARD HCO3 28.7 MMOL/L. (22.0-26.0); ABG TOTAL CO2 31.8 MMOL/L (23.0-31.0); ABG pH (ARTERIAL) 7.411 UNITS (7.350-7.450)
[2023-02-12 21:24] LABS: CK-MB VALUE MASS 3.2 NG/ML (<3.6)
[2023-02-12 21:25] LABS: MB/CK RELATIVE INDEX 1.75 (< OR =4)
[2023-02-12 22:00] VITALS: BP 155/90; TEMP 98
[2023-02-12 22:06] VITALS: O2SAT 96
[2023-02-12 22:41] LABS: CK-MB VALUE MASS 2.8 NG/ML (<3.6)
[2023-02-12 22:43] LABS: MB/CK RELATIVE INDEX 1.48 (< OR =4)
[2023-02-12] MEDS ORDERED: PRED20TA PO (22:53)
== END 2023-02-12 23:23 | disposition home or self-care (01) ==
LOC: M ED 18:21
DX: J44.1 Chronic obstructive pulmonary disease with (acute) exacerbation (principal); E11.9 Type 2 diabetes mellitus without complications; I10 Essential (primary) hypertension; F32.A Depression, unspecified; F41.9 Anxiety disorder, unspecified; M19.90 Unspecified osteoarthritis, unspecified site; G43.909 Migraine, unspecified, not intractable, without status migrainosus; E78.5 Hyperlipidemia, unspecified; M79.7 Fibromyalgia; G56.00 Carpal tunnel syndrome, unspecified upper limb; F17.200 Nicotine dependence, unspecified, uncomplicated; Z88.0 Allergy status to penicillin; Z88.1 Allergy status to other antibiotic agents; Z79.899 Other long term (current) drug therapy; Z79.51 Long term (current) use of inhaled steroids
CPT/HCPCS: 36600; 71045; 80048; 80076; 82550; 82553; 82803; 83605; 83880; 84484; 85025; 85610; 87486; 87581; 87633; 87798; 93005; 93041; 94640; 94760; 96374; 99285; J2930

== ENCOUNTER 2023-02-28 14:10 | Emergency (ER) | payer MEDICARE, MEDICAID ==
[~2023-02-28] VITALS: Ht 157.5 cm; Wt 85.2 kg
[2023-02-28 15:14] LABS: VENOUS BASE EXCESS 0.3 (-2.0-2.0); VENOUS HCO3 26.4 MMOL/L (23.0-27.0); VENOUS O2 SATURATION 79.5 % (60.0-80.0); VENOUS PARTIAL PRESSURE CO2 48.4 mmHg (38.0-50.0); VENOUS PARTIAL PRESSURE O2 38.3 mmHg (30.0-50.0); VENOUS PH 7.355 UNITS (7.330-7.430); VENOUS STANDARD HCO3 24.4 MMOL/L; VENOUS TOTAL CO2 27.9 MMOL/L (24.0-28.0)
[2023-02-28 15:19] LABS: BASO # 0.1 10^3/uL (0.0-0.2); BASO % 0.9 % (0.0-1.0); EOS # 0.2 10^3/uL (0.0-0.5); EOS % 2.3 % (0.0-3.0); HEMATOCRIT 34.2 % (36.0-47.0); HEMOGLOBIN 12.3 g/dl (12.0-15.5); LYMPH # 2.1 10^3/uL (1.5-5.0); LYMPH % 29.8 % (24.0-44.0); MEAN CORPUSCULAR HEMOGLOBIN 32.7 pg (27.0-33.0); MONO # 0.5 10^3/uL (0.0-0.8); MONO % 6.9 % (2.0-8.0); NEUTROPHILS # 4.2 10^3/uL (1.5-8.5); NEUTROPHILS % 59.5 % (36.0-66.0); PLATELET COUNT, AUTOMATED 255 10^3/uL (150-450); RED BLOOD COUNT 3.76 10^6/uL (4.00-5.40)
[2023-02-28 15:41] LABS: LIPASE 52 U/L (12-53)
[2023-02-28 15:44] LABS: ACETONE/KETONE 0.13 MMOL/L (0.02-0.27)
[2023-02-28 15:55] LABS: ALBUMIN 3.2 G/DL (3.2-5.2); ALKALINE PHOSPHATASE 109 U/L (46-116); ALT/SGPT 27 U/L (7.0-40); AST/SGOT 15 U/L (<34); BILIRUBIN,DIRECT < 0.1 MG/DL (<0.4); BILIRUBIN,TOTAL 0.3 MG/DL (0.3-1.2); BLOOD UREA NITROGEN 22 MG/DL (9-23); CALCIUM LEVEL 8.2 MG/DL (8.3-10.6); CARBON DIOXIDE LEVEL 24 MMOL/L (20-31); CHLORIDE LEVEL 93 MMOL/L (98-107); CREATININE FOR GFR 1.63 MG/DL (0.55-1.30); GLOMERULAR FILTRATION RATE 33.7 (>45); GLUCOSE, FASTING 405 MG/DL (74-106); POTASSIUM SERUM 3.7 MMOL/L (3.5-5.1); SODIUM LEVEL 128 MMOL/L (136-145)
[2023-02-28 15:56] LABS: OSMOLALITY SERUM 290 MOSM/KG (280-301)
[2023-02-28 16:09] LABS: HEMOGLOBIN A1c 12.3 % (4.0-6.0)
[2023-02-28] MEDS ORDERED: NS 1,000 ML IV ONE (16:15)
[2023-02-28 20:39] LABS: CALCIUM LEVEL 7.9 MG/DL (8.3-10.6); CREATININE FOR GFR 1.53 MG/DL (0.55-1.30); GLOMERULAR FILTRATION RATE 36.3 (>45); POTASSIUM SERUM 3.7 MMOL/L (3.5-5.1)
[2023-02-28] MEDS ORDERED: NYST1POW9 TOP (20:58)
[2023-02-28] MEDS ORDERED: DIFL150T PO (20:58)
[2023-02-28 21:18] VITALS: BP 139/69; TEMP 97.9; O2SAT 94
== END 2023-02-28 21:17 | disposition home or self-care (01) ==
LOC: M ED 14:10
DX: E11.65 Type 2 diabetes mellitus with hyperglycemia (principal); B35.4 Tinea corporis; J44.9 Chronic obstructive pulmonary disease, unspecified; I10 Essential (primary) hypertension; F41.9 Anxiety disorder, unspecified; F32.A Depression, unspecified; F17.200 Nicotine dependence, unspecified, uncomplicated; Z88.0 Allergy status to penicillin; Z88.1 Allergy status to other antibiotic agents; Z79.899 Other long term (current) drug therapy; Z79.52 Long term (current) use of systemic steroids; Z79.84 Long term (current) use of oral hypoglycemic drugs; Z79.51 Long term (current) use of inhaled steroids

== ENCOUNTER → 2023-03-19 | Outpatient (CLI) | payer MEDICARE, MEDICAID ==
[~2023-03-19] MED LIST changes: +DIFL150T PO; +NYST1POW9 TOP
== END ==
LOC: M CARPUL 15:08
PROVIDERS: ATTEND Physician Assistant
DX: J44.1 Chronic obstructive pulmonary disease with (acute) exacerbation (principal)

== ENCOUNTER → 2023-06-10 | Outpatient (CLI) | payer MEDICARE, MEDICAID | LOC: M RAD 09:28 | PROVIDERS: ATTEND Internal Medicine Nephrology | DX: N18.32 Chronic kidney disease, stage 3b (principal); I12.9 Hypertensive chronic kidney disease with stage 1 through stage 4 chronic kidney disease, or unspecified chronic kidney disease; E11.21 Type 2 diabetes mellitus with diabetic nephropathy ==

== ENCOUNTER → 2023-07-11 | Outpatient (CLI) | payer MEDICARE, MEDICAID | LOC: M RAD 13:53 | PROVIDERS: ATTEND Family Medicine Addiction Medicine | DX: R05.9 Cough, unspecified (principal) ==

== ENCOUNTER → 2023-10-27 | Outpatient (REF) | payer MEDICARE, MEDICAID ==
[~2023-10-27] MED LIST changes: -BENZ150C2 PO; +BENZ150C5 PO
[2023-10-27 13:37] LABS: HEMOGLOBIN A1c 6.6 % (4.0-6.0)
[2023-10-27 13:39] LABS: THYROID STIMULATING HORMONE 2.114 uIU/ML (0.55-4.78)
[2023-10-27 13:42] LABS: ALBUMIN 3.7 G/DL (3.2-5.2); BILIRUBIN,TOTAL 0.3 MG/DL (0.3-1.2); CALCIUM LEVEL 8.9 MG/DL (8.3-10.6); CHOLESTEROL RISK RATIO 5.51 (<5); CREATININE FOR GFR 1.83 MG/DL (0.55-1.30); GLOMERULAR FILTRATION RATE 29.4 (>45); HDL CHOLESTEROL 29.9 MG/DL (>40); LDL CHOLESTEROL 86.1 MG/DL (<100); NON-HDL-C 135.1 MG/DL; POTASSIUM SERUM 4.7 MMOL/L (3.5-5.1); TOTAL PROTEIN 6.6 G/DL (5.7-8.2)
== END ==
LOC: M LAB REF 11:33
PROVIDERS: ATTEND Family Medicine Addiction Medicine
DX: E11.9 Type 2 diabetes mellitus without complications (principal)

== ENCOUNTER → 2023-11-28 | Outpatient (REF) | payer MEDICARE, MEDICAID ==
[2023-11-28 16:58] LABS: BASO # 0.1 10^3/uL (0.0-0.2); BASO % 0.8 % (0.0-1.0); EOS # 0.2 10^3/uL (0.0-0.5); EOS % 2.4 % (0.0-3.0); HEMATOCRIT 34.9 % (36.0-47.0); HEMOGLOBIN 11.8 g/dl (12.0-15.5); LYMPH # 2.7 10^3/uL (1.5-5.0); LYMPH % 31.3 % (24.0-44.0); MEAN CORPUSCULAR HGB CONC 33.8 g/dl (32.0-36.5); MEAN CORPUSCULAR VOLUME 97.5 fl (80.0-96.0); MONO # 0.6 10^3/uL (0.0-0.8); MONO % 7.3 % (2.0-8.0); NEUTROPHILS # 4.9 10^3/uL (1.5-8.5); NEUTROPHILS % 56.8 % (36.0-66.0); PLATELET COUNT, AUTOMATED 265 10^3/uL (150-450); RED BLOOD COUNT 3.58 10^6/uL (4.00-5.40); WHITE BLOOD COUNT 8.6 10^3/uL (4.0-10.0)
[2023-11-28 17:05] LABS: ERYTHROCYTE SEDIMENTATION RATE 33 mm/hr (0-30)
[2023-11-28 17:25] LABS: C REACTIVE PROTEIN QUANTITATIV < 0.40 MG/DL (<1.0)
[2023-11-28 18:02] LABS: BLOOD UREA NITROGEN 16 MG/DL (9-23); CALCIUM LEVEL 8.5 MG/DL (8.3-10.6); CARBON DIOXIDE LEVEL 29 MMOL/L (20-31); CHLORIDE LEVEL 103 MMOL/L (98-107); CREATININE FOR GFR 1.99 MG/DL (0.55-1.30); GLOMERULAR FILTRATION RATE 26.7 (>45); GLUCOSE, FASTING 142 MG/DL (74-106); POTASSIUM SERUM 4.9 MMOL/L (3.5-5.1); SODIUM LEVEL 135 MMOL/L (136-145)
[2023-11-28 18:42] LABS: CREATININE, URINE 42.2 MG/DL; MAU/CREAT RATIO 16.5 MCG/MG (0.0-30.0)
== END ==
LOC: M LAB REF 16:16
PROVIDERS: ATTEND Family Medicine Addiction Medicine
DX: E11.9 Type 2 diabetes mellitus without complications (principal); L08.9 Local infection of the skin and subcutaneous tissue, unspecified

== ENCOUNTER → 2023-12-02 | Outpatient (CLI) | payer MEDICARE, MEDICAID ==
[~2023-12-02] MED LIST changes: +RAMI1.258 PO; -RAMI1CAP21 PO
== END ==
LOC: M RAD 11:43
PROVIDERS: ATTEND Physician Assistant
DX: L08.9 Local infection of the skin and subcutaneous tissue, unspecified (principal)

== ENCOUNTER → 2024-01-02 | Outpatient (CLI) | payer MEDICAID, MEDICARE, OTHER | LOC: M RAD 13:34 | PROVIDERS: ATTEND Physician Assistant | DX: M54.50 Low back pain, unspecified (principal); R20.2 Paresthesia of skin; M62.81 Muscle weakness (generalized); M51.36 Other intervertebral disc degeneration, lumbar region; M85.88 Other specified disorders of bone density and structure, other site ==

== ENCOUNTER 2024-01-24 15:56 | Emergency (ER) | payer MEDICARE, MEDICAID ==
[~2024-01-24] VITALS: Ht 157.5 cm; Wt 84.2 kg
[2024-01-24] MEDS ORDERED: CLEO300C2 PO (18:31)
[2024-01-24] MEDS: CLINDAMYCIN 150MG CAPSULE PO ONE (18:40)
[2024-01-24 18:44] VITALS: BP 143/66; TEMP 96.7; O2SAT 97
== END 2024-01-24 18:45 | disposition home or self-care (01) ==
LOC: M ED 15:56
DX: L89.310 Pressure ulcer of right buttock, unstageable (principal); E11.9 Type 2 diabetes mellitus without complications; I10 Essential (primary) hypertension; J44.9 Chronic obstructive pulmonary disease, unspecified; F17.210 Nicotine dependence, cigarettes, uncomplicated; Z88.0 Allergy status to penicillin; Z88.1 Allergy status to other antibiotic agents; Z79.51 Long term (current) use of inhaled steroids; Z79.2 Long term (current) use of antibiotics; Z79.84 Long term (current) use of oral hypoglycemic drugs; Z79.52 Long term (current) use of systemic steroids; Z79.899 Other long term (current) drug therapy

== ENCOUNTER → 2024-01-30 | Outpatient (CLI) | payer MEDICARE, MEDICAID ==
[~2024-01-30] MED LIST changes: +CLEO300C2 PO
[2024-01-30 14:31] LABS: ALBUMIN 3.5 G/DL (3.2-5.2); ALKALINE PHOSPHATASE 117 U/L (46-116); ALT/SGPT 16 U/L (7.0-40); AST/SGOT < 8 U/L (<34); BILIRUBIN,TOTAL 0.5 MG/DL (0.3-1.2); BLOOD UREA NITROGEN 40 MG/DL (9-23); CALCIUM LEVEL 8.8 MG/DL (8.3-10.6); CARBON DIOXIDE LEVEL 26 MMOL/L (20-31); CHLORIDE LEVEL 96 MMOL/L (98-107); CREATININE FOR GFR 2.38 MG/DL (0.55-1.30); GLOMERULAR FILTRATION RATE 21.7 (>45); GLUCOSE, FASTING 331 MG/DL (74-106); POTASSIUM SERUM 4.8 MMOL/L (3.5-5.1); SODIUM LEVEL 128 MMOL/L (136-145); TOTAL PROTEIN 6.5 G/DL (5.7-8.2)
== END ==
LOC: M LAB 13:04
PROVIDERS: ATTEND Physician Assistant
DX: J44.1 Chronic obstructive pulmonary disease with (acute) exacerbation (principal)

== ENCOUNTER → 2024-02-12 | Outpatient (CLI) | payer MEDICARE, MEDICAID | LOC: M RAD 13:17 | PROVIDERS: ATTEND Physician Assistant | DX: Z12.2 Encounter for screening for malignant neoplasm of respiratory organs (principal); F17.200 Nicotine dependence, unspecified, uncomplicated; R91.8 Other nonspecific abnormal finding of lung field ==

== ENCOUNTER → 2024-02-18 | Outpatient (REF) | payer MEDICARE, MEDICAID | LOC: M LAB REF 16:32 | PROVIDERS: ATTEND Nurse Practitioner Family | DX: R30.0 Dysuria (principal) ==

== ENCOUNTER 2024-03-01 17:59 | Observation (INO) | payer MEDICARE, MEDICAID ==
[~2024-03-01] VITALS: Ht 154.9 cm; Wt 82.1 kg
[2024-03-01] MEDS ORDERED: FARX1TAB3 PO (18:11)
[2024-03-01] MEDS ORDERED: ABIL1TAB11 PO (18:12)
[2024-03-02 00:34] LABS: BASO # 0.1 10^3/uL (0.0-0.2); BASO % 0.9 % (0.0-1.0); EOS # 0.2 10^3/uL (0.0-0.5); EOS % 2.8 % (0.0-3.0); HEMATOCRIT 36.5 % (36.0-47.0); HEMOGLOBIN 12.4 g/dl (12.0-15.5); LYMPH # 3.7 10^3/uL (1.5-5.0); LYMPH % 47.3 % (24.0-44.0); MEAN CORPUSCULAR HEMOGLOBIN 31.7 pg (27.0-33.0); MEAN CORPUSCULAR VOLUME 93.4 fl (80.0-96.0); MONO # 0.5 10^3/uL (0.0-0.8); MONO % 6.6 % (2.0-8.0); NEUTROPHILS # 3.3 10^3/uL (1.5-8.5); NEUTROPHILS % 42.1 % (36.0-66.0); PLATELET COUNT, AUTOMATED 311 10^3/uL (150-450); RED BLOOD COUNT 3.91 10^6/uL (4.00-5.40); WHITE BLOOD COUNT 7.7 10^3/uL (4.0-10.0)
[2024-03-02 00:39] LABS: INR 0.96; PARTIAL THROMBOPLASTIN TIME 29.9 SECONDS (24.8-34.2); PROTHROMBIN TIME 12.5 SECONDS (12.5-14.5)
[2024-03-02 02:16] LABS: ERYTHROCYTE SEDIMENTATION RATE 40 mm/hr (0-30)
[2024-03-02] MEDS: ASPIRIN 325 MG TAB PO ONE (02:20)
[2024-03-02] MEDS ORDERED: ACETAMINOPHEN TAB 650MG DOSE (2X325MG) PO PRN (03:30)
[2024-03-02] MEDS ORDERED: DEXTROSE 50% 50ML SYRINGE IV PRN (03:30)
[2024-03-02] MEDS ORDERED: MOM 30ML SUSPENSION UDC PO PRN (03:30)
[2024-03-02] MEDS ORDERED: GLUCOSE 4 GM CHEW PO PRN (03:30)
[2024-03-02] MEDS ORDERED: GLUCAGON INJ 1MG VIAL SC PRN (03:30)
[2024-03-02] MEDS ORDERED: LANTINJ4 SC (03:44)
[2024-03-02] MEDS ORDERED: ANOR1AER INH (03:44)
[2024-03-02] MEDS ORDERED: NYST1POW9 TOP (03:44)
[2024-03-02] MEDS ORDERED: FARX1TAB5 PO (03:44)
[2024-03-02] MEDS ORDERED: COSE1INJ SC (03:44)
[2024-03-02] MEDS ORDERED: MAGN400T35 PO (03:44)
[2024-03-02] MEDS ORDERED: ABIL1TAB11 PO (03:44)
[2024-03-02] MEDS ORDERED: OMEP-173 PO (03:44)
[2024-03-02] MEDS ORDERED: SPIR-10 PO (03:44)
[2024-03-02] MEDS ORDERED: ERGO500029 PO (03:44)
[2024-03-02] MEDS ORDERED: HOME MED LIST COMPLETE! XX SCH (03:45)
[2024-03-02 04:45] VITALS: BP 157/67; TEMP 97.2; O2SAT 100
[2024-03-02] MEDS: NS 500 ML IV ONE (05:24)
[2024-03-02] MEDS ORDERED: ALBUTEROL 90 MCG/ACT 8GM HFA INHALER INH PRN (05:45)
[2024-03-02] MEDS ORDERED: NYSTATIN 100,000 UNITS/GM TOPICAL PWD 15GM TOP PRN (05:45)
[2024-03-02] MEDS ORDERED: PROPRANOLOL 10 MG TAB PO PRN (05:45)
[2024-03-02] MEDS: POTASSIUM CHLORIDE 10MEQ SR TABLET PO ONE (06:23)
[2024-03-02 07:56] LABS: ALBUMIN 3.6 G/DL (3.2-5.2); ALKALINE PHOSPHATASE 95 U/L (46-116); ALT/SGPT 22 U/L (7.0-40); AST/SGOT 12 U/L (<34); BILIRUBIN,DIRECT < 0.1 MG/DL (<0.4); BILIRUBIN,TOTAL 0.3 MG/DL (0.3-1.2); CHOLESTEROL LEVEL 235 MG/DL (<200); CHOLESTEROL RISK RATIO 7.27 (<5); HDL CHOLESTEROL 32.3 MG/DL (>40); LDL CHOLESTEROL 144.5 MG/DL (<100); NON-HDL-C 202.7 MG/DL; TOTAL PROTEIN 6.5 G/DL (5.7-8.2); TRIGLYCERIDES LEVEL 291 MG/DL (<150)
[2024-03-02 07:57] LABS: HEMOGLOBIN A1c 9.9 % (4.0-6.0)
[2024-03-02 08:11] VITALS: BP 148/68; TEMP 97; O2SAT 96
[2024-03-02] MEDS: QUEtiapine FUMARATE 50MG TAB PO SCH (08:39)
[2024-03-02] MEDS: OMEPRAZOLE 20MG CAP PO SCH (08:39)
[2024-03-02] MEDS: MAGNESIUM OXIDE 400MG TAB (MAG-OX) PO SCH (08:39)
[2024-03-02] MEDS: GABAPENTIN 300 MG CAP PO SCH (08:40)
[2024-03-02] MEDS: TORSEMIDE 20 MG TAB PO SCH (08:40)
[2024-03-02] MEDS: clonazePAM 1 MG TAB PO SCH (08:40)
[2024-03-02] MEDS: SPIRONOLACTONE 25 MG TAB PO SCH (08:40)
[2024-03-02] MEDS: ASPIRIN 81MG CHEW TABLET PO SCH (08:40)
[2024-03-02] MEDS: INSULIN LISPRO (NovoLOG) PER UNIT SC SCH (08:41)
[2024-03-02] MEDS: VENLAFAXINE **XR** 75MG CAPSULE PO SCH ×2 (08:44→08:45)
[2024-03-02] MEDS: HEPARIN SOD (PORCINE) 5000UNITS/ML 1ML VIAL/SYRINGE SC SCH (08:46)
[2024-03-02 09:39] LABS: CALCIUM LEVEL 8.8 MG/DL (8.3-10.6); CREATININE FOR GFR 1.62 MG/DL (0.55-1.30); GLOMERULAR FILTRATION RATE 33.8 (>45); MAGNESIUM LEVEL 1.7 MG/DL (1.8-2.4); POTASSIUM SERUM 4.1 MMOL/L (3.5-5.1)
[2024-03-02 12:20] VITALS: BP 176/78; TEMP 97.7; O2SAT 98
[2024-03-02] MEDS: MAG SULF 1GM/100ML (MAG RUN) 1 GM in IV 1 EA IV ONE (13:23)
[2024-03-02 16:01] VITALS: TEMP 98; O2SAT 100
[2024-03-02 16:22] VITALS: BP 152/88
[2024-03-02 20:05] LABS: THYROID STIMULATING HORMONE 1.987 uIU/ML (0.55-4.78)
[2024-03-02] MEDS ORDERED: traZODone 100 MG TAB PO SCH (21:00)
[2024-03-02] MEDS ORDERED: ATORVASTATIN 20 MG TAB PO SCH (21:00)
[2024-03-02] MEDS ORDERED: INSULIN LISPRO (NovoLOG) PER UNIT SC SCH (21:00)
[2024-03-02] MEDS ORDERED: ramipriL 1.25 MG CAP PO SCH (21:00)
[2024-03-02] MEDS ORDERED: QUEtiapine FUMARATE 100 MG TAB PO SCH (21:00)
[2024-03-02] MEDS ORDERED: LEVEMIR (INSULIN DETEMIR) 1 UNITS/0.01ML SC SCH (21:00)
[2024-03-02] MEDS ORDERED: ROSUVASTATIN 10 MG TAB (CRESTOR) PO SCH (21:00)
[2024-03-08 13:42] LABS: VITAMIN B6,PYRIDOXAL PHOSPHATE 9.9 ng/mL (2.1-21.7)
[2024-03-08 23:03] LABS: VITAMIN E(ALPHA TOCOPHEROL) 19.2 mg/L (5.7-19.9); VITAMIN E(GAMMA TOCOPHEROL) 1.9 mg/L (<=4.3)
[2024-03-26] MEDS ORDERED: ALBU8.5H (07:40)
[2024-03-26] MEDS ORDERED: ARIP1TAB6 PO (07:40)
[2024-03-26] MEDS ORDERED: GABA-1490 PO (07:40)
[2024-03-26] MEDS ORDERED: ROSU40TA81 PO (07:40)
[2024-03-26] MEDS ORDERED: NEUR300C PO (10:04)
== END 2024-03-02 19:00 | disposition home or self-care (01) ==
LOC: M ED 17:59 → M ED INP 18:00 → M MS4PR 03-02 04:38
PROVIDERS: ADMIT Internal Medicine; ATTEND Student in an Organized Health Care Education/Training Program
DX: H53.8 Other visual disturbances (principal); I67.82 Cerebral ischemia; G31.1 Senile degeneration of brain, not elsewhere classified; E78.5 Hyperlipidemia, unspecified; E11.40 Type 2 diabetes mellitus with diabetic neuropathy, unspecified; F32.A Depression, unspecified; F41.9 Anxiety disorder, unspecified; I12.9 Hypertensive chronic kidney disease with stage 1 through stage 4 chronic kidney disease, or unspecified chronic kidney disease; N18.9 Chronic kidney disease, unspecified; G43.909 Migraine, unspecified, not intractable, without status migrainosus; L40.9 Psoriasis, unspecified; M79.7 Fibromyalgia; M19.90 Unspecified osteoarthritis, unspecified site; K21.9 Gastro-esophageal reflux disease without esophagitis; M72.2 Plantar fascial fibromatosis; M46.1 Sacroiliitis, not elsewhere classified; J45.909 Unspecified asthma, uncomplicated; Z88.0 Allergy status to penicillin; Z88.1 Allergy status to other antibiotic agents; Z79.899 Other long term (current) drug therapy; Z79.4 Long term (current) use of insulin; Z79.84 Long term (current) use of oral hypoglycemic drugs; Z80.9 Family history of malignant neoplasm, unspecified; F17.200 Nicotine dependence, unspecified, uncomplicated
CPT/HCPCS: 36415; 70450; 70544; 70551; 80047; 80048; 80061; 80076; 82525; 82607; 83036; 83735; 84207; 84425; 84443; 84446; 85025; 85610; 85652; 85730; 86042; 86140; 93005; 95819; 96372; 99284; G0378; J1815; J3475

== ENCOUNTER → 2024-03-10 | Outpatient (CLI) | payer MEDICARE, MEDICAID ==
[~2024-03-10] MED LIST changes: +ABIL1TAB11 PO; +ANOR1AER INH; +COSE1INJ SC; +ERGO500029 PO; +FARX1TAB3 PO; +FARX1TAB5 PO; +LANTINJ4 SC; +MAGN400T35 PO; +OMEP-173 PO; +SPIR-10 PO
== END ==
LOC: M RAD 10:33
PROVIDERS: ATTEND Physician Assistant
DX: M51.06 Intervertebral disc disorders with myelopathy, lumbar region (principal); M54.50 Low back pain, unspecified; M62.81 Muscle weakness (generalized); R20.2 Paresthesia of skin

== ENCOUNTER 2024-05-06 14:35 | Emergency (ER) | payer MEDICARE, MEDICAID ==
[~2024-05-06] VITALS: Ht 154.9 cm; Wt 82.3 kg
[~2024-05-06 14:35] MED LIST changes: +ALBU8.5H; +ARIP1TAB6 PO; +GABA-1172 PO; +GABA-1490 PO; -GABA-282 PO; +NEUR300C PO; -ROSU20TA61 PO; +ROSU20TA86 PO; +ROSU40TA81 PO
[2024-05-06 14:37] VITALS: TEMP 97.2
[2024-05-06 18:32] VITALS: O2SAT 98
[2024-05-06 18:42] VITALS: BP 128/66; O2SAT 100
[2024-05-06] MEDS: IPRATROPIUM 0.5MG/ALBUTEROL 2.5MG INH SOL UD 3ML (DUONEB) NEB ONE (18:53)
[2024-05-06] MEDS ORDERED: AZIT500T5 PO (19:01)
[2024-05-06] MEDS ORDERED: ALBU2.5V10 INH (19:02)
[2024-05-06] MEDS ORDERED: PRED20TA PO (19:03)
== END 2024-05-06 19:10 | disposition home or self-care (01) ==
LOC: M ED 14:35
DX: J44.1 Chronic obstructive pulmonary disease with (acute) exacerbation (principal); E11.9 Type 2 diabetes mellitus without complications; I10 Essential (primary) hypertension; K21.9 Gastro-esophageal reflux disease without esophagitis; F41.9 Anxiety disorder, unspecified; F32.A Depression, unspecified; F17.210 Nicotine dependence, cigarettes, uncomplicated; Z88.0 Allergy status to penicillin; Z88.1 Allergy status to other antibiotic agents; Z79.51 Long term (current) use of inhaled steroids; Z79.2 Long term (current) use of antibiotics; Z79.4 Long term (current) use of insulin; Z79.52 Long term (current) use of systemic steroids; Z79.899 Other long term (current) drug therapy

== ENCOUNTER → 2024-09-23 | Outpatient (REF) | payer MEDICARE, MEDICAID ==
[~2024-09-23] MED LIST changes: +ALBU2.5V10 INH; +AZIT500T5 PO; +NYST1POW3 TOP; -NYST1POW9 TOP; +PRAV20TA2 PO
== END ==
LOC: M LAB REF 16:09
PROVIDERS: ATTEND Nurse Practitioner Family
DX: L89.309 Pressure ulcer of unspecified buttock, unspecified stage (principal)

== ENCOUNTER → 2024-12-16 | Outpatient (CLI) | payer MEDICARE, MEDICAID | LOC: M RAD 13:57 | PROVIDERS: ATTEND Physician Assistant | DX: I73.9 Peripheral vascular disease, unspecified (principal) ==

== ENCOUNTER → 2025-02-21 | Outpatient (CLI) | payer MEDICARE, MEDICAID ==
[~2025-02-21] MED LIST changes: -PRAV20TA2 PO; +PRAV20TA78 PO
== END ==
LOC: M RAD 10:51
PROVIDERS: ATTEND Neurological Surgery
DX: M48.062 Spinal stenosis, lumbar region with neurogenic claudication (principal); M43.16 Spondylolisthesis, lumbar region; M51.46 Schmorl's nodes, lumbar region; M47.816 Spondylosis without myelopathy or radiculopathy, lumbar region; M47.814 Spondylosis without myelopathy or radiculopathy, thoracic region; M47.817 Spondylosis without myelopathy or radiculopathy, lumbosacral region; N28.1 Cyst of kidney, acquired; M51.26 Other intervertebral disc displacement, lumbar region; E88.2 Lipomatosis, not elsewhere classified; E27.8 Other specified disorders of adrenal gland

== ENCOUNTER → 2025-06-01 | Outpatient (CLI) | payer MEDICARE, MEDICAID ==
[2025-06-01 13:16] LABS: BASO # 0.1 10^3/uL (0.0-0.2); BASO % 0.8 % (0.0-1.0); EOS # 0.7 10^3/uL (0.0-0.5); EOS % 9.6 % (0.0-3.0); LYMPH # 2.3 10^3/uL (1.5-5.0); LYMPH % 30.2 % (24.0-44.0); MONO # 0.5 10^3/uL (0.0-0.8); MONO % 6.0 % (2.0-8.0); NEUTROPHILS # 4.1 10^3/uL (1.5-8.5); NEUTROPHILS % 53.0 % (36.0-66.0); PLATELET COUNT, AUTOMATED 293 10^3/uL (150-450)
[2025-06-01 13:47] LABS: ESTIMATED AVERAGE GLUCOSE 157.0 MG/DL (60-110)
[2025-06-01 13:49] LABS: ALT/SGPT 16.0 U/L (7.0-40); AST/SGOT 10.0 U/L (<34); CALCIUM LEVEL 8.9 MG/DL (8.3-10.6); CARBON DIOXIDE LEVEL 27.0 MMOL/L (20-31); CHLORIDE LEVEL 107.0 MMOL/L (98-107); CHOLESTEROL LEVEL 220.0 MG/DL (<200); CHOLESTEROL RISK RATIO 7.14 (<5); CREATININE FOR GFR 2.15 MG/DL (0.55-1.30); GLOMERULAR FILTRATION RATE 24.6 (>45); LDL CHOLESTEROL 115.4 MG/DL (<100); NON-HDL-C 189.2 MG/DL; POTASSIUM SERUM 4.6 MMOL/L (3.5-5.1); SODIUM LEVEL 136.0 MMOL/L (136-145); TRIGLYCERIDES LEVEL 369.0 MG/DL (<150)
[2025-06-01 13:50] LABS: CREATININE, URINE 28.4 MG/DL; MALB URINE SIEMENS < 3.0 MG/L
== END ==
LOC: M LAB 12:19
PROVIDERS: ATTEND Physical Therapist
DX: E11.9 Type 2 diabetes mellitus without complications (principal)

== ENCOUNTER → 2025-06-06 | Outpatient (CLI) | payer MEDICARE, MEDICAID | LOC: M RAD 15:18 | PROVIDERS: ATTEND Neurological Surgery | DX: M48.062 Spinal stenosis, lumbar region with neurogenic claudication (principal); M47.817 Spondylosis without myelopathy or radiculopathy, lumbosacral region ==

== ENCOUNTER → 2025-06-09 | Outpatient (REF) | payer MEDICARE, MEDICAID | LOC: M LAB REF 17:21 | PROVIDERS: ATTEND Student in an Organized Health Care Education/Training Program | DX: J44.1 Chronic obstructive pulmonary disease with (acute) exacerbation (principal) ==

== ENCOUNTER 2025-06-18 13:29 | Emergency (ER) | payer MEDICARE, MEDICAID ==
[~2025-06-18] VITALS: Ht 157.5 cm; Wt 84.0 kg
[2025-06-18] MEDS ORDERED: ROSU20TA86 (13:44)
[2025-06-18] MEDS ORDERED: NYST100084 (13:44)
[2025-06-18] MEDS ORDERED: NYST1POW3 (13:44)
[2025-06-18] MEDS ORDERED: PANT40TA29 (13:44)
[2025-06-18] MEDS ORDERED: BUSP10TA (13:44)
[2025-06-18] MEDS: NS 500 ML IV ONE (14:19)
[2025-06-18] MEDS: PANTOPRAZOLE 40MG VIAL IV ONE (14:19)
[2025-06-18 14:21] LABS: BASO # 0.0 10^3/uL (0.0-0.2); BASO % 0.3 % (0.0-1.0); EOS # 0.5 10^3/uL (0.0-0.5); EOS % 4.0 % (0.0-3.0); LYMPH # 2.1 10^3/uL (1.5-5.0); LYMPH % 17.9 % (24.0-44.0); MONO # 0.7 10^3/uL (0.0-0.8); MONO % 5.5 % (2.0-8.0); NEUTROPHILS # 8.5 10^3/uL (1.5-8.5); NEUTROPHILS % 71.9 % (36.0-66.0); PLATELET COUNT, AUTOMATED 283 10^3/uL (150-450)
[2025-06-18 14:44] LABS: INR 0.96
[2025-06-18 14:46] LABS: ALT/SGPT 15 U/L (7.0-40); AST/SGOT 13 U/L (<34); CALCIUM LEVEL 7.8 MG/DL (8.3-10.6); CARBON DIOXIDE LEVEL 21 MMOL/L (20-31); CHLORIDE LEVEL 107 MMOL/L (98-107); CREATININE FOR GFR 2.20 MG/DL (0.55-1.30); GLOMERULAR FILTRATION RATE 24.0 (>45); POTASSIUM SERUM 4.0 MMOL/L (3.5-5.1); SODIUM LEVEL 133 MMOL/L (136-145)
[2025-06-18] MEDS: CIPROFLOXACIN 500 MG TABLET PO ONE (17:04)
[2025-06-18 17:06] VITALS: BP 132/60
[2025-06-18 17:08] VITALS: O2SAT 98
[2025-06-18] MEDS ORDERED: CIPR-249 PO (17:09)
[2025-06-18] MEDS ORDERED: METR-265 PO (17:10)
[2025-06-18 17:14] VITALS: TEMP 97.1
== END 2025-06-18 17:23 | disposition home or self-care (01) ==
LOC: M ED 14:40
DX: K92.2 Gastrointestinal hemorrhage, unspecified (principal); K52.9 Noninfective gastroenteritis and colitis, unspecified; E11.9 Type 2 diabetes mellitus without complications; I10 Essential (primary) hypertension; K21.9 Gastro-esophageal reflux disease without esophagitis; E78.5 Hyperlipidemia, unspecified; J44.9 Chronic obstructive pulmonary disease, unspecified; F17.210 Nicotine dependence, cigarettes, uncomplicated; Z88.0 Allergy status to penicillin; Z88.1 Allergy status to other antibiotic agents; Z79.51 Long term (current) use of inhaled steroids; Z79.2 Long term (current) use of antibiotics; Z79.4 Long term (current) use of insulin; Z79.899 Other long term (current) drug therapy
CPT/HCPCS: 74176; 80048; 80076; 83690; 85025; 85610; 85730; 86850; 86900; 86901; 93041; 96361; 96374; 99285; J2470

== ENCOUNTER → 2025-07-07 | Outpatient (CLI) | payer MEDICARE, MEDICAID ==
[~2025-07-07] MED LIST changes: +BUSP10TA PO; +CILO100T3 PO; +CIPR-249 PO; +CLON1TAB17 PO; +METR-265 PO; +NYST100084; +NYST1POW3; +PANT40TA29 PO
== END ==
LOC: M RAD 13:02
PROVIDERS: ATTEND Student in an Organized Health Care Education/Training Program
DX: Z12.2 Encounter for screening for malignant neoplasm of respiratory organs (principal); Z87.891 Personal history of nicotine dependence; R91.8 Other nonspecific abnormal finding of lung field

== ENCOUNTER 2025-07-20 14:40 | Emergency (ER) | payer MEDICARE, MEDICAID ==
[~2025-07-20] VITALS: Ht 154.9 cm; Wt 84.2 kg
[2025-07-20 14:47] VITALS: TEMP 98.4
[2025-07-20 16:36] VITALS: BP 142/65; O2SAT 100
== END 2025-07-20 16:39 | disposition home or self-care (01) ==
LOC: M ED 14:40
DX: S90.121A Contusion of right lesser toe(s) without damage to nail, initial encounter (principal); Y92.019 Unspecified place in single-family (private) house as the place of occurrence of the external cause; Y93.9 Activity, unspecified; Y99.9 Unspecified external cause status; W22.09XA Striking against other stationary object, initial encounter; F17.210 Nicotine dependence, cigarettes, uncomplicated; Z88.0 Allergy status to penicillin; Z88.1 Allergy status to other antibiotic agents; Z79.51 Long term (current) use of inhaled steroids; Z79.899 Other long term (current) drug therapy; Z79.4 Long term (current) use of insulin

== ENCOUNTER → 2025-07-25 | Outpatient (CLI) | payer MEDICAID, MEDICARE | LOC: M RAD 15:07 | PROVIDERS: ATTEND Nurse Practitioner Family | DX: M79.674 Pain in right toe(s) (principal) ==